=== PATIENT | female | born 1995 ===

== ENCOUNTER 2025-01-17 09:16 | Inpatient (IN) | payer BC ==
[2025-01-17] MEDS ORDERED: ceFAZolin 2 GM in Water For Injection, Sterile 20 ML IVPUSH ONE (09:51)
[2025-01-17] MEDS ORDERED: Citric Acid/Sodium Citrate Solution 30 ML Cup PO ONE (09:51)
[2025-01-17] MEDS ORDERED: Sodium Chloride 0.9% 2.5 ML Syringe FLUSH PRN (09:51)
[2025-01-17] MEDS ORDERED: Sodium Chloride 0.9% 10 ML Syringe FLUSH PRN (09:51)
[2025-01-17] MEDS ORDERED: Oxytocin/0.9 % Sodium Chloride 30 UNIT/500 ML BAG IV SCH (10:00)
[2025-01-17] MEDS: Lactated Ringers 1,000 ML IV SCH ×2 (10:20→13:17)
[2025-01-17 11:04] LABS: MEAN PLATELET VOLUME 9.7 fL (9.4-12.3); NRBC ABSOLUTE 0.00 K/uL (0.00-0.02); NRBC PERCENT 0.0 /100WBC (0.0-0.2); PLATELET COUNT,PLT 194 K/uL (150-400); RED BLOOD CELL COUNT 4.62 M/uL (4.10-5.30); WHITE BLOOD CELL COUNT,WBC 10.27 K/uL (3.9-11.3)
[2025-01-17] MEDS ORDERED: Oxytocin 10 Units/1 ML SDV ONE (11:06)
[2025-01-17] MEDS ORDERED: Morphine PF 10 MG/10 ML SDV ONE (11:06)
[2025-01-17] MEDS ORDERED: fentaNYL 100 MCG/2 ML SDV ONE (11:06)
[2025-01-17] MEDS ORDERED: Ondansetron 4 MG/2 ML SDV ONE (11:06)
[2025-01-17] MEDS ORDERED: Ketorolac 30 MG/ML SDV ONE (11:06)
[2025-01-17] MEDS ORDERED: Ropivacaine 0.5% 5 MG/ML 30 ML SDV ONE (11:06)
[2025-01-17] MEDS ORDERED: diphenhydrAMINE 50 MG/ML SDV IVPUSH PRN ×2 (12:32→12:38)
[2025-01-17] MEDS ORDERED: Naloxone 0.4 MG/ML SDV IVPUSH PRN ×2 (12:32→12:38)
[2025-01-17] MEDS ORDERED: Ondansetron 4 MG/2 ML SDV IVPUSH PRN ×3 (12:32→12:38)
[2025-01-17] MEDS ORDERED: Oxytocin 10 Units/1 ML SDV IM PRN (12:32)
[2025-01-17] MEDS ORDERED: Lanolin 100% Cream 7 GM Tube TOP PRN (12:32)
[2025-01-17] MEDS ORDERED: Nalbuphine 10 MG/1 ML Vial IVPUSH PRN (12:38)
[2025-01-17] MEDS ORDERED: fentaNYL 100 MCG/2 ML SDV IVPUSH PRN (12:38)
[2025-01-17] MEDS ORDERED: fentaNYL 50 MCG/ML SDV IVPUSH PRN (12:38)
[2025-01-17] MEDS ORDERED: Acetaminophen/oxyCODONE 325-5 MG Tab PO PRN (12:38)
[2025-01-17] MEDS ORDERED: Albuterol 0.083% 2.5 MG/3 ML Neb Soln NEB PRN (12:38)
[2025-01-17] MEDS ORDERED: Ketorolac 30 MG/ML SDV IVPUSH SCH (12:45)
[2025-01-17 12:57] LABS: PH,UMBILICAL ARTERIAL 7.24 (7.18-7.38); PH,UMBILICAL VENOUS 7.33 (7.25-7.45)
[2025-01-17] MEDS: Ketorolac 30 MG/ML SDV IVPUSH SCH (18:16)
[2025-01-18] MEDS: Ketorolac 30 MG/ML SDV IVPUSH SCH (12:04)
== END 2025-01-19 13:08 | disposition home or self-care (01) | DRG 540 ==
LOC: MW.OB 09:16
PROVIDERS: ADMIT Obstetrics & Gynecology; ATTEND Obstetrics & Gynecology
PROC: 4A1HXCZ Monitoring of Products of Conception, Cardiac Rate, External Approach (ICD-10-PCS; 2025-01-17)
PROC: 10D00Z1 Extraction of Products of Conception, Low, Open Approach (ICD-10-PCS; principal; 2025-01-17 12:00)
DX: O32.1XX0 Maternal care for breech presentation, not applicable or unspecified (principal); Z3A.39 39 weeks gestation of pregnancy; Z37.0 Single live birth
CPT/HCPCS: 01961; 36415; 59025; 64488; 82803; 85014; 85018; 85027; 86592; 86850; 86900; 86901; A9270-GY; J0173; J0665; J0690; J1100; J1885; J2274; J2405; J2590; J2795; J3010; J7120